=== PATIENT | male | born 1960 | race Caucasian/White ===

== ENCOUNTER 2022-02-24 06:13 | Day surgery (SDC) | payer MEDICAID ==
[~2022-02-24] VITALS: Ht 167.6 cm; Wt 71.7 kg
[2022-02-24] MEDS ORDERED: MEPERIDINE 100 MG INJ. 100 MG/ML VIAL ONE (08:20)
[2022-02-24] MEDS ORDERED: MIDAZOLAM HCL 5 MG/5 ML VIAL ONE (08:20)
[2022-02-24 15:19] VITALS: BP_SYST 101
== END 2022-02-24 09:50 | disposition home or self-care (01) ==
LOC: SDS 06:13 → SMU 06:14 → SDS 09:50
PROVIDERS: ATTEND Internal Medicine Gastroenterology
DX: Z12.11 Encounter for screening for malignant neoplasm of colon (principal); D12.4 Benign neoplasm of descending colon; K62.1 Rectal polyp; Z86.010 Personal history of colon polyps; K57.30 Diverticulosis of large intestine without perforation or abscess without bleeding; K64.9 Unspecified hemorrhoids; Z20.822 Contact with and (suspected) exposure to COVID-19; Z79.899 Other long term (current) drug therapy
CPT/HCPCS: 36415 ×2; 45385; 96365; 87426; 88305; 99152; U0003; J2250; J2175; 45378